=== PATIENT | male | born 1990 | race Asian ===

== ENCOUNTER 2023-01-22 16:15 | Emergency (ER) | payer BC, MEDICAID ==
[2023-01-22 16:28] VITALS: BP 138/92
[2023-01-22] MEDS ORDERED: LIDOCAINE 1% 2 ML VIAL SUBQ STA (16:40)
--- NOTE | 2023-01-22 16:45 | ED Physician Documentation ---
History of Present Illness - Stated complaint Stated Complaint: MALE - Chief complaint Chief Complaint: Wound - History obtained from History obtained from: Patient - History of Present Illness Timing: How many weeks ago (2) - Additonal information Additional information: Paul Dunaway is a 33-year-old male with a history of diabetes who has developed an abscess on his buttocks that has begun to drain. He has had pain on and off and drainage on and off for the past 2 weeks. He continues to have symptoms and comes in today for evaluation and treatment. He has not had this happen previously. He denies having to get up at night to go to the bathroom. He does not check his blood sugars. Review of Systems Constitutional: denies: Fever Nose: denies: Congestion Throat: denies: Sore throat Cardiac: denies: Chest pain / pressure Respiratory: denies: Cough GI: denies: Abdominal Pain, Vomiting, Diarrhea : denies: Dysuria, Frequency Skin: reports: Lesions Musculoskeletal: denies: Neck pain, Back pain, Extremity pain PD PAST MEDICAL HISTORY - Past Medical History Past Medical History: Yes Cardiovascular: None Respiratory: None Endocrine/Autoimmune: None GI: None : None HEENT: None Psych: None Musculoskeletal: None Derm: None - Past Surgical History Past Surgical History: No - Present Medications Home Medications: Ambulatory Orders Medication Instructions Recorded Confirmed cephALEXin [Keflex] 500 mg PO Q6H #28 cap 01/22/23 - Allergies Allergies/Adverse Reactions: Allergies Allergy/AdvReac Type Severity Reaction Status Date / Time No Known Drug Allergies Allergy Verified 01/22/23 16:27 - Social History Does the pt smoke?: No Smoking Status: Never smoker Does the pt drink ETOH?: Yes Does the pt have substance abuse?: No - Immunizations Immunizations are current?: Yes - POLST Patient has POLST: No PD ED PE NORMAL - Vitals Vital signs reviewed: Yes (hypertensive mild ) - General General: Alert and oriented X 3, No acute distress, Well developed/nourished - HEENT HEENT: Atraumatic, PERRL, EOMI - Respiratory Respiratory: No respiratory distress - Rectal Rectal: Other (On the right buttocks cheek medially there is a fluctuance and an area of drainage of pus about 3cm round. 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, No motor deficit, No sensory deficit, Normal speech Eye Opening: Spontaneous Motor: Obeys Commands Verbal: Oriented GCS Score: 15 - Psych Psych: Normal mood, Normal affect Results - Vitals Vitals: Vital Signs - 24 hr 01/22/23 16:21 Temperature 36.6 C Heart Rate 81 Respiratory 16 Rate Blood Pressure 138/92 H O2 Saturation 99 Oxygen O2 Source Room air Procedures - Abscess I&D (location) buttocks Preparation: Betadine, Lidocaine 1% Incision: Incised with scalpel, Purulent drainage, Loculations broken, Irrigated, Culture obtained Other: Pt tolerated well, Dressing applied, Antibiotic prescribed PD Medical Decision Making - ED course Complexity details: reviewed old records, re-evaluated patient, considered differential, d/w patient ED course: 33-year-old male with a history of type 2 diabetes has developed a painful mass on his right medial buttock. He has draining of this for the past 2 weeks and he has not had abscess previously. He was encouraged by multiple coworkers to come to the emergency department for evaluation and treatment. Today we find a firm 6 cm mass with a central area of fluctuance and spontaneous drainage. We were able to anesthetize and enlarge the opening as well as break up loculations and irrigated till clear. I did obtain a culture. Despite 2 weeks of abscess to the buttocks the patient is currently not getting up at night to urinate and does not have excessive thirst. My interpretation of this is that his diabetes is not out of control. The patient does not test and the last time that he did test he was in the 70s. He had an initial sugar of over 1100 when he was first treated 8 years ago. He has discontinued treatment more than 2 years ago. Departure - Departure Disposition: 01 Home, Self Care Clinical Impression: Abscess of right buttock Condition: Stable Instructions: ED Abscess IandD Follow-Up: [facility] [place] [Provider Group] Prescriptions: cephALEXin [Keflex] 500 mg PO Q6H #28 cap Comments: Paul, today we found a large abscess on your buttocks and we were able to incise, drain, and irrigate it. There is no packing in this. The recommendation is to use a warm compress 2-3 times per day for about 10 minutes each time. I have E scribed some antibiotic to the [facility] in [place]. Our expectation with treatment is steady improvement in the size of the mass, the pain and the amount of drainage. A follow-up with a primary care doctor is indicated and I have given you the telephone number of the [facility] primary care in [place]. A follow-up for your chronic diarrhea and diabetes is indicated as well.
== END 2023-01-22 17:25 | disposition home or self-care (01) ==
LOC: ED 16:15
DX: L02.31 Cutaneous abscess of buttock (principal); E11.9 Type 2 diabetes mellitus without complications
CPT/HCPCS: 10060

== ENCOUNTER 2023-02-19 11:06 | Outpatient (CLI) | payer BC ==
[2023-02-19 13:48] LABS: RHEUMATOID FACTOR NEGATIVE (Negative)
--- NOTE | 2023-02-19 14:31 | XRAY Report ---
PROCEDURE: Chest 2 View X-Ray INDICATIONS: IRIDOCYCLITIS TECHNIQUE: 2 views of the chest were acquired. COMPARISON: None. FINDINGS: Surgical changes and devices: None. Lungs and pleura: No pleural effusions or pneumothorax. Lungs are clear. Mediastinum: Mediastinal contours appear normal. Heart size is normal. Bones and chest wall: No suspicious bony lesions. Overlying soft tissues appear unremarkable. IMPRESSION: No acute cardiopulmonary process. No focal consolidation seen Reviewed by: Wong Godwin MD on 02/19/2023 2:30 PM PDT Approved by: Wong Godwin MD on 02/19/2023 2:30 PM PDT Station ID: [id number]
[2023-02-20 06:10] LABS: RPR Non Reactive (Non Reactive)
[2023-02-20 20:08] LABS: ANTI-DNA (DS) AB QN <1 IU/mL (0-9); CENTROMERE B ANTIBODIES <0.2 AI (0.0-0.9); CHROMATIN ANTIBODIES <0.2 AI (0.0-0.9); JO-1 AB <0.2 AI (0.0-0.9); RIBOSOMAL P ANTIBODIES <0.2 AI (0.0-0.9); RNP ANTIBODIES <0.2 AI (0.0-0.9); SCLERODERMA-70 ANTIBODIES <0.2 AI (0.0-0.9); SJOGREN'S ANTI-SS-A <0.2 AI (0.0-0.9); SJOGREN'S ANTI-SS-B <0.2 AI (0.0-0.9); SMITH ANTIBODIES <0.2 AI (0.0-0.9); SMITH/RNP ANTIBODIES <0.2 AI (0.0-0.9)
[2023-02-21 16:08] LABS: TREPONEMA PALLIDUM ANTIBODIES Non Reactive (Non Reactive)
[2023-02-25 03:10] LABS: ANGIOTENSIN-CONVERTING ENZYME 36 U/L (14-82)
== END 2023-02-19 11:07 | disposition home or self-care (01) ==
LOC: DI 11:06
PROVIDERS: ATTEND Ophthalmology
DX: H20.00 Unspecified acute and subacute iridocyclitis (principal)
CPT/HCPCS: 36415; 81374; 81599; 82164; 86225; 86235; 86430; 86592; 86780